=== PATIENT | male | born 1945 | race Caucasian/White ===

== ENCOUNTER 2019-10-31 06:56 | Day surgery (SDC) | payer MEDICARE, OTHER, SELFPAY ==
--- NOTE | 2019-10-31 | PATH_ITS ---
[facility] Accession Number: [id number] . 01 Material submitted: . PART A: colon - BIOPSY POLYPS ASCENDING COLON AND CECUM PART B: rectum - RECTAL POLYP . 01 Clinical history: . COLONOSCOPY . 02 Diagnosis: A. Ascending Colon and Cecal Polyps, Biopsies: Fragments of tubular adenoma and fragments of colonic mucosa with no diagnostic abnormality. . B. Rectum, Polyp: Traditional serrated adenoma. Additional step sections examined. V 11/04/2019 1441 Local . 02 Comment: Part B: A traditional serrated adenoma is considered an advanced adenoma; as such, assurance of complete removal of the lesion and a shortened surveillance interval are recommended. . 02 Electronically signed: . John Xiong MD, PhD, Pathologist NPI- [id number] . 01 Gross description: . Part A: BIOPSY POLYPS ASCENDING COLON AND CECUM: Received in formalin are multiple fragment(s) of heredia, soft tissue measuring 0.1 x 0.1 x 0.1 cm to 0.2 x 0.2 x 0.2 cm submitted entirely in 1 cassette(s) Part B: RECTAL POLYP: Received in formalin is 1 fragment(s) of heredia, soft tissue measuring 0.6 x 0.4 x 0.4 cm submitted entirely in 1 cassette(s) [place] [place] 10/31/2019 2326 Local . 02 Pathologist provided ICD-10: D12.0, D12.2 . 02 CPT . 254283, [id number] Performed at: 01 [facility] [address] [id number] MD Duane Herrmann MD Phone: [phone] [facility]formed [facility]: [facility] [place] [address] [place], [place] [id number] MD Reanna Garsia MD Phone: [phone]
[2019-10-31] MEDS: SODIUM CHLORIDE 0.9% 1,000 ML 150 ML IV (07:05)
[2019-10-31 07:35] VITALS: BP 139/69; PULSE 78; RESP 15; TEMP 36.5; O2SAT 98; BMI 25.5
--- NOTE | 2019-10-31 07:49 | PM.HP.1 ---
History of Present Illness History of Present Illness Date Patient Seen: 10/31/19 Time Patient Seen: 07:49 Chief complaint: [id number] COLONOSCOPY Narrative: The patient is a gentleman whose last colonoscopy was 15 years ago. He was advised that time that maybe 15 years a be an adequate period of time for him till the next procedure per his history. He had a recent positive cologuard test. He has a mother who of colon cancer at age 68. Patient History Medical History Esophageal stricture (Acute) GERD (gastroesophageal reflux disease) (Acute) Graves disease (Acute) H/O supraventricular tachycardia (Acute) Hypertension (Acute) Hyperthyroidism (Acute) Sleep apnea (Acute) Urinary frequency (Acute) Wears glasses (Acute) Family & Social History Family History Mother No problems noted. Social History: household members spouse Meds Home Medications and Allergies Home Medications Medication Instructions Recorded Confirmed Type [GLUCOSAMINE ] PO QDAY #0 08/04/10 History fexofenadine 180 mg PO QDAY #0 08/04/10 10/31/19 History fluticasone propionate [Flonase 1 spray INTRANASAL QDAY #0 08/04/10 10/31/19 History Allergy Relief] multivitamin [Multiple Vitamins] 1 tab PO QDAY #0 08/04/10 10/31/19 History PreserVision AREDS-2 1 cap PO QDAY #0 02/13/18 10/31/19 History [PROBIOTIC] PO QDAY #0 02/13/18 History [SHAKLEE COQHEART] PO QPM #0 02/13/18 History azelastine 1 spray INTRANASAL DAILY #0 02/13/18 10/31/19 History clobetasol 1 cameron TOPICAL PRN #0 02/13/18 10/31/19 History esomeprazole magnesium [Nexium] 40 mg PO QDAY #0 02/13/18 10/31/19 History losartan [Cozaar] 25 mg PO DAILY #0 02/13/18 10/31/19 History olopatadine [Patanol] 1 drp OPHTH DAILY #0 02/13/18 10/31/19 History Allergies Allergy/AdvReac Type Severity Reaction Status Date / Time No Known Allergies Allergy Uncoded 10/31/19 07:18 Review of Systems Review of Systems Narrative: Patient has no visual difficulties at this time no recent cardiac events. He had an ablation for SVT done in 2017. Patient has some intermittent breathing issues. None at this time. No chest pain. He has been dilated in esophagus in the past and has had no problems swallowing since he was begun on Nexium. Exam Vital Signs (past 8 hours): - 10/31/19 07:35 Temperature 97.7 F Pulse Rate 78 Respiratory Rate 15 Blood Pressure 139/69 Pulse Oximetry 98 Oxygen Delivery Method Room Air Narrative Exam Narrative: Pleasant cooperative patient no apparent distress. Lungs are clear to auscultation. No rales or rhonchi. Heart regular rate and rhythm no murmur gallop. Abdomen is soft nontender without mass. No obvious hernias. Patient is alert and oriented x3. Assessment & Plan Assessment & Plan narrative: The patient for a screening colonoscopy. I have discussed the procedure with them. Risks of bleeding, perforation which would necessitate major operation, failure to find remove all lesions, the potential tattoo were all discussed. All questions were answered. They wished to proceed.
--- NOTE | 2019-10-31 07:53 | PM.PREOP ---
Pre-operative Note Interval Note History & Physical reviewed/Exam performed by Physician: Yes Changes to H&P: No ASA Class (for procedural sedation): II
[2019-10-31] MEDS: MIDAZOLAM 5 MG/5 ML VIAL IV (07:54)
[2019-10-31] MEDS: fentaNYL 250 MCG/5 ML INJ IV (07:54)
--- NOTE | 2019-10-31 08:00 | SUR.OPER ---
GLASSES IN LABELED BAG TO PACU WITH PATIENT
--- NOTE | 2019-10-31 08:29 | PM.OP.ENDO ---
Operative Date/Time/Diagnoses Date of procedure: 10/31/19 Time of procedure: 08:30 Pre-op diagnosis: Screening examination. Last exam 15 years ago. Family history of colon cancer in his mother. Post-op diagnosis: same Procedure & Clinicians Study performed: Colonoscopy with cold biopsy and hot snare polypectomy Same procedure as scheduled: Yes Indications: Positive: Garde test. Screening examination. Surgeon: Genaro Elizondo Procedure Notes SCOAP/Timeout: Performed Procedure in detail: The patient was placed in the left lateral decubitus position and underwent IV sedation directed by the surgeon consisting of fentanyl and Versed. Digital exam was unremarkable. His prostate is normal in size and texture.. The scope was inserted and advanced through the rectum into the sigmoid, descending, transverse, and ascending colon. The patient had extensive sigmoid diverticulosis noted. SMA the turn into the ascending colon there was a small polyp the head of me which I biopsied and completely removed.. The cecum was reached identified by the ileocecal valve and the appendiceal opening. The ileocecal valve was successfully cannulated. The terminal ileum was normal in appearance. There was a small polyp in the cecum which I biopsied and removed. This is placed in the same container as the ascending colon polyp due to their proximity. The scope was gradually brought out. One other Polyp were found at the rectum at about 10 cm. This was snared and completely removed.. The scope ultimately was retroflexed in the rectum. The appearance was normal. The scope was removed and the patient tolerated the procedure well. The prep was adequate. Scope withdrawal time: 7 minutes(9 total) Sedation minutes: 29 Findings: diverticulosis and polyp Specimen(s): other (Polyps 3 in two containers) Complications: none Post-procedure Recommendations: Colonscopy in 5 years Follow up: as needed Disposition: PACU
[2019-10-31 08:34] VITALS: BP 116/95; PULSE 92; RESP 12; TEMP 36.8; O2SAT 97
[2019-10-31 08:38] VITALS: BP 119/56; PULSE 81; RESP 11; O2SAT 97
[2019-10-31 08:41] VITALS: BP 120/57; PULSE 84; RESP 11; O2SAT 95
[2019-10-31 09:01] VITALS: BP 105/63; PULSE 70; RESP 16; TEMP 36.1; O2SAT 96
== END 2019-10-31 09:14 | disposition home or self-care (01) ==
PROVIDERS: Family Provider Internal Medicine; PCP Internal Medicine; Visit Provider Specialist
PROC: 0DJD8ZZ Inspection of Lower Intestinal Tract, Via Natural or Artificial Opening Endoscopic (ICD-10-PCS; CPT 45378; principal; 2019-10-31 07:45)
DX: K57.30 Diverticulosis of large intestine without perforation or abscess without bleeding (principal); Z80.0 Family history of malignant neoplasm of digestive organs; I10 Essential (primary) hypertension; E03.9 Hypothyroidism, unspecified; G47.30 Sleep apnea, unspecified; D12.0 Benign neoplasm of cecum; D12.2 Benign neoplasm of ascending colon
CPT/HCPCS: 45385; 45380; 99152; 99153; J2250; J3010

== ENCOUNTER → 2023-04-11 12:11 | Outpatient (CLI) | payer MEDICARE, OTHER, SELFPAY ==
--- NOTE | 2023-04-11 13:05 | DI.DEXA.S_ITS ---
Bone Density Report Name: JOSE CHACKO Age: 77 Sex: Male Ethnicity: White Date of : 1945 Indication: screening for osteoporosis; Referring Provider: REJI PRINGLE Study: Bone densitometry was performed. Exam Date: April 11, 2023 Accession number: [id number] Bone Density: Region BMD T-score Z-score Classification AP Spine(L1-L4) 1.314 2.4 3.1 Normal Femoral Neck (Left) 0.851 0.0 0.8 Normal Total Hip (Left) 1.022 0.7 0.8 Normal Femoral Neck (Right) 0.946 0.9 1.5 Normal Total Hip (Right) 1.050 0.9 1.0 Normal Total Hip Mean 1.036 0.8 0.9 Normal World Health Organization criteria for BMD impression classify patients as: Normal (T-score at or above -1.0), Osteopenia (T-score between -1.0 and -2.5), or Osteoporosis (T-score at or below -2.5). 10-year Fracture Risk: FRAX not reported because: All T-scores for Spine Total, Hip Total, Femoral Neck at or above -1.0 Impression: The patient has normal bone mass. Discussion: BONE DENSITY IS ABOVE THE MINIMUM DESIRABLE LEVEL AT ALL SKELETAL SITES TESTED. This patient?s bone mineral density is above the minimum desirable level (T-score -1.0 or better) at all sites measured. The patient should follow a healthful lifestyle (good nutrition with adequate calcium and vitamin D, and appropriate weight-bearing exercise). Follow-Up: Consider repeating this study in 5 years or sooner if there is some new clinical indication. Reported by: KAVITA GALVEZ M.D. on 04/11/2023 1:13:00 PM.
== END ==
PROVIDERS: Family Provider Internal Medicine; PCP Nurse Practitioner Family; Referring Provider Nurse Practitioner Family; Visit Provider Nurse Practitioner Family
DX: M81.0 Age-related osteoporosis without current pathological fracture (principal)
CPT/HCPCS: 77080

== ENCOUNTER → 2023-11-24 10:06 | Outpatient (CLI) | payer MEDICARE, OTHER, SELFPAY ==
--- NOTE | 2023-11-24 10:08 | DI.MRI.S_ITS ---
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 Thin-slice sagittal and coronal T1 spin echo, coronal T2 fast spin echo through the pituitary. After the administration contrast, optional dynamic coronal T1 spin echo, thin-slice coronal and sagittal T1 spin echo images through the pituitary fossa; axial and coronal and sagittal T1 spin echo with fat saturation through the brain. COMPARISON: None. FINDINGS: Image quality: Excellent. Pituitary Gland: In the posterior lobe of the pituitary gland, the neurohypophysis, there is a 4.5 by 6.9 mm nodule with delayed enhancement irregular. Infundibulum is slightly to the right paradoxically the posterior pituitary bright spot appears to be displaced superiorly CSF Spaces: Ventricles are normal in size and shape. Basal cisterns are patent. No extra-axial fluid collections. Brain: No intracranial bleeds or mass effects. No abnormal intracranial enhancement. Pappas-white matter interface is intact. Diffusion weighted images demonstrate no acute infarct. Brainstem is normal. Normal intravascular flow voids are present. Skull and face: Calvarial marrow is normal in signal. Orbits appear normal. Sinuses: Sinuses and mastoids are clear. IMPRESSION: Subcentimeter pituitary microadenoma noted centered in the posterior lobe of the pituitary gland. No suprasellar or cavernous sinus involvement Approved by: Cecilio Diaz M.D. on 11/24/2023 at 18:18
== END ==
PROVIDERS: Family Provider Internal Medicine; PCP Family Medicine; Referring Provider Family Medicine; Visit Provider Family Medicine
DX: E05.00 Thyrotoxicosis with diffuse goiter without thyrotoxic crisis or storm (principal); D35.2 Benign neoplasm of pituitary gland; K40.90 Unilateral inguinal hernia, without obstruction or gangrene, not specified as recurrent
CPT/HCPCS: 70553; 99214; A9579

== ENCOUNTER 2024-01-03 12:54 | Day surgery (SDC) | payer MEDICARE, OTHER, SELFPAY ==
[2024-01-01 13:32] VITALS: BMI 24.4
[2024-01-03] VITALS (8 sets, daily range): BP systolic 122–150; BP diastolic 52–84; PULSE 55–75; RESP 12–16; TEMP 36.1–37.1; O2SAT 97–100; BMI 24.0
[2024-01-03] MEDS: LACTATED RINGERS 1,000 ML 21 ML IV (13:38)
--- NOTE | 2024-01-03 14:19 | PM.HP.1 ---
History of Present Illness History of Present Illness Date Patient Seen: 01/03/24 Time Patient Seen: 14:19 Chief complaint: Open Right Inguinal Hernia Repair Narrative: 78-year-old man here for open right inguinal hernia repair of a symptomatic hernia. Interval change in health since last seen new diagnosis of a pituitary adenoma. No seizures no loss of consciousness no visual changes. [facility] Medical History Arteriosclerosis Subdural hematoma (2018) High serum testosterone Wears glasses Urinary frequency Graves disease Hyperthyroidism Esophageal stricture GERD (gastroesophageal reflux disease) Sleep apnea H/O supraventricular tachycardia Hypertension Surgical History H/O cardiac radiofrequency ablation (2017) History of uvulectomy History of rekha hole surgery (2018) H/O hand surgery H/O knee surgery Family History Mother Colon cancer Father Stroke Social History marital status: household members: spouse lives independently: Yes occupational status: previously employed Smoking Status: Never smoker alcohol intake: never substance use type: does not use Meds Home Medications and Allergies Home Medications Medication Instructions Recorded Confirmed Type fluticasone propionate 50 1 spray intranasal QDAY ##0 08/04/10 01/03/24 History mcg/actuation nasal spray,suspension (Flonase Allergy Relief) multivitamin (Multiple Vitamins 1 tab PO QDAY ##0 08/04/10 01/03/24 History tablet) losartan 25 mg tablet (Cozaar) 25 mg PO DAILY ##0 02/13/18 01/03/24 History olopatadine 0.1 % eye drops 1 drp OPHTH DAILY ##0 02/13/18 01/03/24 History (Patanol) Relief Factor PO 11/24/23 History glucosamine-chondroitin [Osteo PO 11/24/23 11/24/23 History Bi-Flex] fexofenadine 180 mg tablet 180 mg PO DAILY 01/03/24 01/03/24 History pantoprazole 20 mg tablet,delayed 20 mg PO DAILY 01/03/24 01/03/24 History release Allergies Allergy/AdvReac Type Severity Reaction Status Date / Time No Known Drug Allergies Allergy Verified 01/03/24 12:57 Exam Vital Signs (past 8 hours): - 01/03/24 13:27 Temperature 98.7 F Pulse Rate 74 Respiratory Rate 12 Blood Pressure 141/70 H Pulse Oximetry 98 Oxygen Delivery Method Room Air Oxygen Delivery Method Room Air Narrative Exam Narrative: General adult man alert oriented no acute distress Chest nonlabored respiration Abdomen right inguinal hernia marked with my initials Extremities warm well perfused Assessment & Plan Assessment & Plan narrative: 78-year-old man with a symptomatic reducible right inguinal hernia here for open repair. Overview of the operation again reviewed including its risks of hemorrhage, infection, chronic pain, damage to surrounding structures, recurrence. Questions have been answered. He provides his written and verbal consent to proceed.
--- NOTE | 2024-01-03 14:24 | SUR.OPER ---
Supine on padded OR bed, head on pillow, arms secured on padded arm boards at <90 degrees abduction, legs uncrossed, safety belt at thigh, tape over blanket over lower legs.
[2024-01-03] MEDS: CEFAZOLIN 2 GM/100 ML PREMIX 100 ML IV (14:50)
[2024-01-03] MEDS: BUPIVACAINE 0.25% (PF) VIAL 30 ML INJ (15:46)
[2024-01-03] MEDS: ACETAMINOPHEN 325 MG TABLET 650 MG PO (15:57)
[2024-01-03] MEDS: OXYCODONE IR 5 MG TABLET PO ×2 (15:58→16:45)
--- NOTE | 2024-01-09 08:28 | PM.OP.1 ---
Operative Date/Time/Diagnoses Date of procedure: 01/03/24 Time of procedure: 08:28 Pre-op diagnosis: Right inguinal hernia Post-op diagnosis: same Procedure & Clinicians Procedure: Open right inguinal hernia repair Same procedure as scheduled: Yes Indications: Symptomatic reducible right inguinal hernia Surgeon: Emiliano Farrar Yes if Unassisted: Yes Operative Notes Findings: Large direct floor defect. No indirect hernia Estimated Blood Loss (mL): 20 Procedure in detail: The patient was placed supine on the table and bilateral lower extremity compression devices were applied. Anesthesia was induced they were intubated with an LMA and received Ancef. A time-out was performed. They were prepped and draped in sterile fashion. The right external inguinal ring and the anterior superior iliac crest were identified and marked. 1 finger breath above the inguinal ligament the skin was infiltrated with 0.25% bupivacaine. The skin incision was made, the subcutaneous tissues were divided with electrocautery exposing the external oblique aponeurosis which was then opened along the direction of its fibers. Using blunt dissection the internal oblique aporneurosis was from the external oblique upper leaflet. The cord was carefully dissected away from the inguinal canal adjacent to the pubic tubercle. The cord including the vas deferens, testicular bloody supply, ilioguinal and genital nerve were encircled with a [place] drain. A direct floor defect was identified and it was reduced into the abdomen and the internal oblique aporneuorsis was approximated to the inguinal ligament with Ethibond suture to reapproximate the floor over a plug of mesh. The cremasteric fibers surrounding the cord were divided adjacent to the internal ring. The vas deferens and the testicular vessels were preserved and protected. The cord contents were carefully explored. There was a cord lipoma which was skeletonized off the cord there was no findings of a indirect hernia. A 7x 15 cm lightweight Bard Pro Loop hernia mesh was anchored to the insertion of the rectus muscle at the pubic tubercle such that there was approximately 2 cm of tubercle overlap with Ethibond. The inferior edge of the mesh was secured to the shelving edge of the inguinal ligament using Ethibond. Interrupted 3 0 Vicryl suture was used to anchor the superior aspect of the mesh to the conjoined tendon in several places. The tails were then reapproximated loosely around the spermatic cord. The tails of the mesh were then tucked under the external oblique aponeurosis. The repair was checked for hemostasis. The wound was irrigated with sterile saline. The external oblique aponeurosis was reapproximated in a running fashion using 3 0 Vicryl. The subcutaneous tissues were reapproximated with 3 0 Vicryl skin closed with 4 0 Monocryl followed by the application of Dermabond. At the end of the operation I ensured that both testicles were within the scrotum. The sponge instrument count at the end operation was correct. The patient emerged from anesthesia was extubated and transferred to the postoperative care unit in stable condition. A total of 30 ml of of 0.25% bupivicaine was used to infiltrate the skin. Complications: none Post-operative Condition: stable Disposition: same day surgery
== END 2024-01-03 16:45 | disposition home or self-care (01) ==
PROVIDERS: Family Provider Internal Medicine; PCP Family Medicine; Referring Provider Surgery; Visit Provider Surgery
PROC: (CPT 49505; principal; 2024-01-03 14:45)
DX: K40.90 Unilateral inguinal hernia, without obstruction or gangrene, not specified as recurrent (principal); D17.6 Benign lipomatous neoplasm of spermatic cord
CPT/HCPCS: 49505; J0690; J3010

== ENCOUNTER → 2025-01-18 15:49 | Outpatient (CLI) | payer MEDICARE, OTHER, SELFPAY ==
--- NOTE | 2025-01-18 15:53 | DI.MRI.S_ITS ---
PROCEDURE: MR BRAIN (PITUITARY) [facility] INDICATIONS: Pituitary Adenoma TECHNIQUE: Noncontrast sagittal and axial FLAIR, axial gradient echo, axial diffusion and ADC through the brain. Thin-slice sagittal and coronal T1 spin echo, coronal T2 fast spin echo through the pituitary. After the administration contrast, optional dynamic coronal T1 spin echo, thin-slice coronal and sagittal T1 spin echo images through the pituitary fossa; axial and coronal and sagittal T1 spin echo with fat saturation through the brain. COMPARISON: [facility], MR, MR BRAIN (PITUITARY) [facility], 11/24/2023, 12:20. FINDINGS: Image quality: Excellent. Pituitary Gland: Pituitary gland is normal in size. As identified previously in the posterior aspect there is a 4.5 by 7 mm nodule with delayed enhancement. There is slight rightward deviation of the infundibulum. Posterior pituitary bright spot appears somewhat superiorly displaced. Overall appearance is unchanged compared to prior exam. CSF Spaces: Ventricles are normal in size and shape. Basal cisterns are patent. No extra-axial fluid collections. Brain: No intracranial bleeds or mass effects. No abnormal intracranial enhancement. Pappas-white matter interface is intact. Diffusion weighted images demonstrate no acute ischemic insults. Brainstem is normal. Normal intravascular flow voids are present. Skull and face: Calvarial marrow is normal in signal. Orbits appear normal. Sinuses: Sinuses and mastoids are clear. IMPRESSION: Stable appearance of delayed enhancement within the right pituitary gland most suspicious for micro adenoma. No suprasellar cavernous sinus involvement. No displacement of the optic chiasm. Dictated by: Lucero Oh M.D. on 01/20/2025 at 12:22 Approved by: Lucero Oh M.D. on 01/20/2025 at 12:25
== END ==
PROVIDERS: Family Provider Internal Medicine; PCP Family Medicine; Referring Provider Student in an Organized Health Care Education/Training Program; Visit Provider Student in an Organized Health Care Education/Training Program
DX: D35.2 Benign neoplasm of pituitary gland (principal)
CPT/HCPCS: 70553; A9579